=== PATIENT | male | born 1945 | race Caucasian/White ===

== ENCOUNTER 2020-01-26 05:37 | Day surgery (SDC) | payer OTHER ==
[~2020-01-26] VITALS: Ht 167.6 cm; Wt 93.0 kg
[~2020-01-26 05:37] MED LIST: ACET325 PO; ASCO500 PO; BASAGLAR K100 UNIT/1 SC; CEPH500 PO; DOCU100 PO; ELIQUIS5 MG PO; IRON18 MG PO; METF500 PO
--- NOTE | 2020-01-26 13:50 | NUR ---
pt arrived to [facility] 9 via wheelchair, a/ox3, pleasant and cooperative with care, follows commands well, denies pain, states hes comfortable, lungs are clear t/o, resp even and unlabored, no cough noted, hrr, tele in place running paced rhythm, no edema noted, ppp+2, cap refill <3sec, vs stable, afebrile, iv site is clear and patent, btx4, abd flat soft nontender, voids without diff, skin has dressing to lcw, is c/w/d, wilfredo gunderson, call light in reach.
--- NOTE | 2020-01-26 18:56 | NUR ---
pt doing ok, got up to br several times without diff, keeping his arm sling in place, ice pack to wound, no complaints or needs. call light in reach.
--- NOTE | 2020-01-26 20:00 | NUR ---
ASSUMED CARE: PT S/P PACER. A&O X 4. CURRENTLY PACED. DSG IS C/D/I. LUNG SOUNDS CLEAR, SPO2 >90% ON RA. VOIDS ON OWN. INDEPENDENT. PTS ARM IS IN SLING WITH ICE PACK TO PACER SITE. PT AWARE TO NOT BEAR WEIGHT ON THAT ARM OR LIFT ARM ABOVE HEAD
--- NOTE | 2020-01-27 05:15 | NUR ---
SHIFT SUMMARY: NO ACUTE CHANGES OVERNIGHT. PT SLEPT ON AND OFF. PACER DRESSING C/D/I. VSS. WILL PASS REPORT TO ONCOMING SHIFT
--- NOTE | 2020-01-27 09:44 | NUR ---
PT IS A&O X4, WEARING SLING, STATES THAT HE HAD A GOOD NIGHT AND NO REPORTS OF PAIN THIS AM. NO SIGNS OF INFECTION AT SURGICAL SITE. DR. FORD IN TO SEE PT, CHANGED DRESSING, AND SAID PT TO BE D/C HOME. ASSESSMENT BENIGN. PT HAS BEDSIDE TABLE AND CALL LIGHT WITHIN REACH, BED IN LOW POSITION.
--- NOTE | 2020-01-27 11:30 | NUR ---
PT RECIEVED DISCHARGED INSTRUCTIONS. NO NEW MEDICATIONS TO CALL IN. ALL IVs REMOVED. PT TOOK ALL HIS BELONNING. WALKED OUT WITH STAFF MEMBER.
== END 2020-01-27 10:51 | disposition home or self-care (01) ==
LOC: MHTC 05:37 → PCU 12:58 → MHTC 01-27 10:51
DX: I49.5 Sick sinus syndrome (principal); I48.92 Unspecified atrial flutter; I10 Essential (primary) hypertension; E11.9 Type 2 diabetes mellitus without complications; Z79.4 Long term (current) use of insulin; Z79.01 Long term (current) use of anticoagulants; Z79.899 Other long term (current) drug therapy; Z87.891 Personal history of nicotine dependence
CPT/HCPCS: 33208; 71045; 71046; 76937; 82947; 99152; 99153; A9270-GY; C1785; C1894; C1898; J0690; J1644; J2250; J3010; J7030; J7040